=== PATIENT | female | born 1975 | race Caucasian/White ===

== ENCOUNTER 2023-09-09 12:40 | Outpatient (CLI) | payer BC, SELFPAY ==
--- NOTE | ~2023-09-09 | MR_ITS ---
EXAMINATION: MR sacroiliac robert wo/w con DATE: 09/09/2023 13:56 INDICATION: Chronic pain in multiple joints. Hip and back pain. TECHNIQUE: Magnetic resonance imaging (MRI) of the sacroiliac joints was performed without and with 1 3 mL MultiHance intravenous contrast. COMPARISON: None. FINDINGS: Bone alignment is normal. No fracture. There is moderate spondylosis of lower lumbar spine. There is mild osteoarthritis of the sacroiliac joints. IMPRESSION: 1. Mild osteoarthritis of the sacroiliac joints. No evidence of inflammatory arthropathy. Reviewed, dictated and finalized at location A. ER AUTOMATIC IMPRESSION: 1. Mild osteoarthritis of the sacroiliac joints. No evidence of inflammatory ar thropathy.
== END 2023-09-09 12:41 ==
LOC: GOSHIMG 12:44
PROVIDERS: Visit Provider Physician Assistant Medical
DX: M25.50 Pain in unspecified joint (principal); G89.29 Other chronic pain; M54.50 Low back pain, unspecified; M53.3 Sacrococcygeal disorders, not elsewhere classified
CPT/HCPCS: 72197; A9577